=== PATIENT | female | born 1980 | race Caucasian/White ===

== ENCOUNTER 2016-12-25 14:32 | Inpatient (IN) | payer BC ==
--- NOTE | 2016-12-25 14:35 | Non Stress Test Report ---
Non Stress Test Datetime Report Generated by CPN: 12/25/2016 14:35 INDICATION Indication for Study (NST) Other: AMA MONITORING Monitor Explained: Monitor Explained; Test Explained; Patient Verbalized Understanding Time on Monitor: 12/21/2016 14:21 Time off Monitor: 12/21/2016 14:42 NST Duration: 21 NST INTERVENTIONS NST Interventions: PO Hydration; Reposition Patient Physician Notified NST: Dr Chirag BABY A: [id number] BABY A Movement : Present Contraction Frequency : 0 FHR Baseline : 145 Accelerations : 15X15 Decelerations : None Variability : Moderate 6-25bpm NST Review: Meets Criteria for Reactive NST NST Review and Verified By : Kaci Camp RNC NST Results: Reactive NST REPORT Report Trigger: Send Report
[2016-12-25 15:17] LABS: ABSOLUTE LYMPHOCYTES (AUTO) 1.4 10^3/uL (0.5-4.7); ABSOLUTE MONOCYTES (AUTO) 1.2 10^3/uL (0.1-1.4); ABSOLUTE NEUT (AUTO) 7.3 10^3/uL (1.7-8.2); BASOPHILS % (AUTO) 0.2 % (0-2); EOSINOPHILS % (AUTO) 0.2 % (0-6); HEMATOCRIT 31.9 % (36.0-47.0); HEMOGLOBIN 11.2 g/dL (12.0-15.5); HGB HCT DIFFERENCE 1.7; LYMPHOCYTES % (AUTO) 14.1 % (13-45); MEAN CORPUSCULAR HEMOGLOBIN 32.7 pg (27.0-33.4); MEAN CORPUSCULAR HGB CONC 35.3 g/dL (32.0-36.0); MEAN CORPUSCULAR VOLUME 93 fl (80-97); MONOCYTES % (AUTO) 12.3 % (3-13); RED BLOOD COUNT 3.44 10^6/uL (3.72-5.28); RED CELL DISTRIBUTION WIDTH 12.6 % (11.5-14.0); SEGMENTED NEUTROPHILS % (AUTO) 73.2 % (42-78); WHITE BLOOD COUNT 9.9 10^3/uL (4.0-10.5)
[2016-12-25 15:25] LABS: APPEARANCE,URINE SLIGHTLY-CLOUDY; BILIRUBIN,URINE NEGATIVE (NEGATIVE); GLUCOSE, URINE NEGATIVE (NEGATIVE); KETONES,URINE NEGATIVE (NEGATIVE); LEUKOCYTE ESTERASE,URINE SMALL (NEGATIVE); NITRITE,URINE NEGATIVE (NEGATIVE); PROTEIN,URINE NEGATIVE (NEGATIVE); URINE SPECIFIC GRAVITY 1.005; UROBILINOGEN,URINE NEGATIVE mg/dL (<2.0)
[2016-12-25 15:38] LABS: ALANINE AMINOTRANSFERASE 20 U/L (9-52); ALBUMIN 3.1 g/dL (3.5-5.0); ALKALINE PHOSPHATASE 84 U/L (38-126); ANION GAP 11 (5-19); ASPARTATE AMINO TRANSFERASE 17 U/L (14-36); BILIRUBIN,DIRECT 0.2 mg/dL (0.0-0.4); BILIRUBIN,TOTAL 0.3 mg/dL (0.2-1.3); BLOOD UREA NITROGEN 5 mg/dL (7-20); CALCIUM 9.8 mg/dL (8.4-10.2); CARBON DIOXIDE 21 mmol/L (22-30); CHLORIDE 108 mmol/L (98-107); CREATININE RESULT 0.73 mg/dL (0.52-1.25); GLUCOSE 107 mg/dL (75-110); LDH 336 U/L (313-618); POTASSIUM 3.4 mmol/L (3.6-5.0); SODIUM 140.2 mmol/L (137-145); TOTAL PROTEIN 5.9 g/dL (6.3-8.2); URIC ACID 4.4 mg/dL (2.5-7.0)
[2016-12-25 15:46] LABS: URINE BARBITURATES SCREEN NEGATIVE; URINE METHADONE SCREEN NEGATIVE; URINE OPIATES LOW NEGATIVE; URINE PHENCYCLIDINE SCREEN NEGATIVE
[2016-12-25 15:55] LABS: URINE CREATININE 39.4 mg/dL (16-327); URINE PROTEIN 14.6 mg/dL (<12)
[2016-12-25] MEDS ORDERED: OXYTOCIN/NORMAL SALINE 20 UNIT/1,000 ML RTUINJ ONE (17:07)
[2016-12-25] MEDS ORDERED: OXYTOCIN 10 UNIT/ML VIAL ONE (17:08)
[2016-12-25] MEDS ORDERED: MORPHINE SULFATE 10 MG/ML INJ ONE (17:08)
[2016-12-25] MEDS ORDERED: MIDAZOLAM 2 MG/2 ML INJ ONE (17:08)
[2016-12-25] MEDS ORDERED: DIPH/PERTUSS(ACELL)/TETANUS VAC/PF 0.5 ML SYR (>=10YO) IM PRN (18:05)
[2016-12-25] MEDS ORDERED: OXYTOCIN/NORMAL SALINE 20 UNIT/1,000 ML RTUINJ IV PRN (18:05)
[2016-12-25] MEDS ORDERED: MEASLES,MUMPS&RUBELLA VACC/PF 0.5 ML VIAL SUBCUT PRN (18:05)
[2016-12-25] MEDS ORDERED: OXYCODONE-ACETAMINOPHEN 5-325 MG TABLET PO PRN (18:05)
[2016-12-25] MEDS ORDERED: ACETAMINOPHEN 325 MG TABLET PO PRN (18:05)
[2016-12-25] MEDS ORDERED: PROMETHAZINE HCL INJ 25 MG/1 ML VIAL IV PRN (18:05)
[2016-12-25] MEDS ORDERED: ACETAMINOPHEN 100 ML IV ONE (18:14)
[2016-12-25] MEDS ORDERED: ACETAMINOPHEN 100 ML IV PRN (19:00)
[2016-12-25] MEDS ORDERED: FENTANYL CITRATE INJ/PF 100 MCG/2 ML AMPUL ONE (19:32)
[2016-12-25] MEDS ORDERED: KETOROLAC TROMETHAMINE INJ/PF 30 MG/1 ML SDV IV ONE (20:00)
[2016-12-25] MEDS ORDERED: KETOROLAC TROMETHAMINE INJ/PF 30 MG/1 ML SDV ONE (20:06)
--- NOTE | 2016-12-25 20:22 | Admission Physical ---
Datetime Report Generated by CPN: 12/25/2016 20:22 CURRENT ADMISSION Chief Complaint: Signs/Symptoms Gestational HTN; Other Chief Complaint Other: History of section Indication for Induction: Not Applicable Indication for Induction: Term, Intrauterine ; No Active Labor; Intact Membranes Admit Impression- Other: Severe Range BPs in office and YIN since Saturday. Elevated P:C ratio Admit Plan: Admit to Unit; Initiate Section Protocol ALLERGIES Medication Allergies: No Medication Allergies: No Known Allergies (12/21/2016) Latex: No Latex Allergies OBSTETRICAL HISTORY EDC: 01/15/2017 00:00 : 3 Para: 1 Cesareans: 1 Gestational Diabetes: No Rh Sensitization: No Incompetent Cervix: No IMELDA: No Infertility: No ART Treatment: No Uterine Anomaly: No IUGR: No Hx Previous C/S: No Macrosomia: No Hx Loss/Stillborn: No PIH: No Hx : No Placenta Previa/Abruption: No Depression/PP Depression: No PTL/PROM: No Post Hemorrhage: No Obstetrical History Comments: G1 2010 baby boy G2 SAB G3 current SEE RECORDS Alcohol: No Marijuana : No Cocaine: No Other Illicit Drugs: No Cigarettes: Never Smoker. [id number] MEDICAL HISTORY Diabetes: No Blood Transfusion: No Pulmonary Disease (Asthma, TB): No Breast Disease: No Hypertension: No Relay Dispatcher Surgery: No Heart Disease: No Hosp/Surgery: No Autoimmune Disorder: No Anesthetic Complications: No Kidney Disease: No Abnormal Pap Smear: No Neuro/Epilepsy: No Psychiatric Disorders: No Other Medical Diseases: No Hepatitis/Liver Disease: No Significant Family History: No Varicosities/Phlebitis: No Trauma/Violence : No Thyroid Dysfunction: No INFECTIOUS HISTORY Gonorrhea: No Genital Herpes: No Chlamydia: No Tuberculosis: No Syphilis: No Hepatitis: No HIV/AIDS Exposure: No Rash or Viral Illness: No HPV: No PHYSICAL EXAM General: Normal HEENT: Normal Neurologic: Normal Thyroid: Normal Heart: Normal Lungs: Normal Breast: Deferred Back: Normal Abdomen: Normal Genitourinary Exam: Normal Extremities: Normal DTRs: Normal Pelvic Type: Adequate Vital Signs: Reviewed VAGINAL EXAM Dilatation: 2 Effacement: 80 Station: -1 Contraction Comments: Irregular MEMBRANES Membranes: Intact FETUS A EGA: 37.0 Monitoring: External US FHR- Baseline: 155 Variability: Moderate 6-25bpm Accelerations: 15X15 Decelerations: None FHR Category: Category I Presentation: Vertex Admit Comment: 36yo at 37+0ega presents from office with YIN since Zack (improved today) but severe range BPs in office. BP 162/74 and 161/74. BPs on L_D normal but Protein:Creatinine ratio elevated at 0.4 which is c/w PreE. Reviewed PreE and risks of PreE in and recommendations for delivery. c/b AMA, IVF , GBS pos. MFM consult during due to IVF . Platlets normal and AST/ALT wnl. Consents reviewed and due to h/o prior section plan for Repeat Section. PLANS FOR LABOR AND DELIVERY Feeding Preference: Breast Benefit of Breast Feed Discussed: Yes Circumcision: Yes INFORMED CONSENT Informed Consent Obtained: Section Delivery; Risks, Benefits and Alternatives Discussed Signature: with User ID: [email or web address]
--- NOTE | 2016-12-25 20:27 | OPERATIVE REPORT E ---
Operative Report NAME: ANJALI MENARD : 1980 AGE: 36Y DATE OF SURGERY: 12/25/2016 ROOM: LR200 PREOPERATIVE DIAGNOSIS: INTRAUTERINE AT 37 WEEKS AND ZERO DAYS, PREECLAMPSIA, AND PREVIOUS . POSTOPERATIVE DIAGNOSIS: INTRAUTERINE AT 37 WEEKS AND ZERO DAYS, PREECLAMPSIA, AND PREVIOUS . OPERATION: Low-transverse hysterotomy, section procedure. SURGEON: MANOLO CLARKE M.D. ANESTHESIA: Della Sanchez MD, with a spinal. FINDINGS: Male infant, cephalic presentation, with Apgars of 9/9, weight of 3055 grams. COMPLICATIONS: None. ESTIMATED BLOOD LOSS: 600 mL TISSUE REMOVED OR ALTERED: None. PROCEDURE IN DETAIL: The patient was taken to the operating room, prepared and draped in normal sterile fashion in the supine position with a leftward tilt. The transverse skin incision was made with a scalpel and carried through to the underlying layer of fascia with the same scalpel. The fascia was excised in the midline, extended laterally with surgeon finger fracture. The fracture was then dissected from the rectus muscle sharply using Barba's, and the rectus muscle was entered sharply using the Bovie, and careful layering of the dissection due to rectus muscle adhesions. The rectus muscle was then divided, and the peritoneal cavity was entered bluntly with good visualization of the bladder and the uterus. The bladder flap was created using Metzenbaum's and dissected down, well away from the hysterotomy site, as the bladder did have previous adhesions of the bladder mcc up the lower uterine segment. The hysterotomy was then nicked with a scalpel and extended laterally with surgeon finger fracture. The was delivered atraumatically. The nose and mouth were suctioned with a suction bulb, and the cord was clamped and cut, and the infant was handed off to waiting bee producer. The cord blood was collected, and the placenta was removed manually. The uterus was exteriorized and cleared of clots and debris. The hysterotomy was closed with 0 Monocryl in a running, locked fashion. A second layer of stay suture was used to imbricate to ensure hemostasis. The uterus was then returned to the abdomen. The peritoneal cavity was once again cleared of clots. The rectus muscle and peritoneum were reapproximated with a mattress stitch of 2-0 chromic. The fascia was closed with 0 Vicryl. Subcutaneous layer was closed with plain catgut, and the skin was closed with 4-0 Vicryl. The patient tolerated the procedure well. Sponge, lap, and needle counts were correct x2. The patient was taken to recovery in stable condition. DICTATING PHYSICIAN: MANOLO CLARKE M.D. [id number] PHY#: [id number] ID: [id number] JOB#: [id number] ACCT: [id number] cc:MANOLO CLARKE M.D. >
[2016-12-25] MEDS: MORPHINE SULFATE 10 MG/ML INJ IV PRN (20:48)
--- NOTE | 2016-12-25 20:51 | Delivery Summary ---
Del Sum A-C Datetime Report Generated by CPN: 12/25/2016 20:51 DELIVERY PERSONNEL DELIVERY PERSONNEL: [id number] Delivery Doctor:: Chhaya Beard MD Anesthesiologist:: Della Sanchez MD MANAGER DIABETES:: Cyril Snider CRNA Labor and Delivery Nurse:: Nikia Mesa RN Labor and Delivery Nurse:: TEODORA Jacobo Nursery Nurse:: Janett Montano RN Community Health Counselor/ELECTRICIAN CONTROL EQUIPMENT: Blanca Tamez, ST Community Health Counselor/ELECTRICIAN CONTROL EQUIPMENT: Nikole Cheung, DIGITAL ASSET COORDINATOR MATERNAL INFORMATION Delivery Anesthesia: Spinal Medications After Delivery: Pitocin Drip 20 Units/1000ml NSS Estimated Blood Loss (ml): 500 Maternal Complications: Other Other Maternal Complications: Pre e LABOR SUMMARY EDC: 01/15/2017 00:00 Attempted: No LABOR INFORMATION Reason for Induction: Not Applicable Group B Beta Strep: Positive Antibiotics # of Doses: 0 Steroids Given: None Reason Steroids Not Administered: Not Applicable MEMBRANES Membranes Rupture Method: Artificial Rupture of Membranes: 12/25/2016 17:01 Length of Rupture (hr): 0.52 Amniotic Fluid Color: Clear Amniotic Fluid Amount: Small Amniotic Fluid Odor: Normal STAGES OF LABOR Stage 3 hr: 0 Stage 3 min: 1 VAGINAL DELIVERY Episiotomy: None Laceration #1: None Laceration Extension #1: N/A Laceration Repair: No CSECTION DELIVERY Primary Indication: Other Other Primary Indication: Pre e Secondary Indication: Severe PIH, Unfavorable Cervix CSection Urgency: Non-Scheduled CSection Incidence: Repeat Labor: N/A Elective: Elective CSection Incision: Lower Uterine Transverse BABY A INFORMATION Infant Delivery Date/Time: 12/25/2016 17:32 Method of Delivery: Born in Route : No : N/A Forceps: N/A Vacuum Extraction: N/A Shoulder Dystocia : No PLACENTA INFORMATION BABY A Placenta Delivery Time : 12/25/2016 17:33 Placenta Method of Delivery: Expressed Placenta Status: Delivered SCORES BABY A Heart Rate 1 min: >100 bpm Resp Effort 1 min: Good Cry Reflex Irritability 1 min: Cough or Sneeze or Pulls Away Muscle Tone 1 min: Active Motion Color 1 min: Body [place], Extremities Blue Resuscitation Effort 1 min: N/A SCORE 1 MIN: 9 Heart Rate 5 min: >100 bpm Resp Effort 5 min: Good Cry Reflex Irritability 5 min: Cough or Sneeze or Pulls Away Muscle Tone 5 min: Active Motion Color 5 min: Body [place], Extremities Blue Resuscitation Effort 5 min: N/A SCORE 5 MIN: 9 INFORMATION BABY A Gestational Age at Delivery: 37.0 Gestational Status: Early Term- 37- 38.6 Weeks Infant Outcome : Liveborn Infant Condition : Stable Sex: Male IDENTIFICATION BABY A Infant Verification Date/Time: 12/25/2016 17:34 ID Band Number: [id number] Mother's Name Verified: Yes RN Verifying : Harrison Mesa RN Additional Verifying Personnel: Vikas Gore RN WEIGHT/LENGTH BABY A Birthweight (gm): 3055 Weight (lb): 6 Infant Weight (oz): 12 Length (in): 19.00 Infant Length (cm): 48.26 CORD INFORMATION BABY A No. Cord Vessels: 3 Nuchal Cord : Around Neck x1, Loose Cord Blood Taken: Yes-For Eval (Mom's Blood Type - or O+) Infant Suction: None ASSESSMENT BABY A Infant Complications: None Physical Findings at Delivery: Within Normal Limits Infant Respirations: Appears Normal Skin to Skin: Yes Skin to Skin Time (min): 20 Napkin Machine Operator/ALS Called : No Infant Care By: Dwayne Montano RN Transferred To: Nursery
[2016-12-25] MEDS: OXYCODONE-ACETAMINOPHEN 5-325 MG TABLET PO PRN (22:48)
[2016-12-26] MEDS ORDERED: KETOROLAC TROMETHAMINE INJ/PF 30 MG/1 ML SDV IV SCH ×2 (02:00→04:00)
[2016-12-26] MEDS: MORPHINE SULFATE 10 MG/ML INJ IV PRN (02:13)
[2016-12-26 06:59] LABS: HEMATOCRIT 28.6 % (36.0-47.0); HGB HCT DIFFERENCE 1.4; MEAN CORPUSCULAR HEMOGLOBIN 32.8 pg (27.0-33.4); MEAN CORPUSCULAR VOLUME 94 fl (80-97); RED BLOOD COUNT 3.05 10^6/uL (3.72-5.28); RED CELL DISTRIBUTION WIDTH 12.7 % (11.5-14.0); WHITE BLOOD COUNT 11.4 10^3/uL (4.0-10.5)
[2016-12-26] MEDS: SIMETHICONE 80 MG TAB.CHEW PO PRN ×4 (08:11→22:25)
[2016-12-26] MEDS: OXYCODONE-ACETAMINOPHEN 5-325 MG TABLET PO PRN ×3 (08:12→16:09)
[2016-12-26] MEDS: PRENATAL VITAMIN W-O CA NO5/FE FUMARATE/FA CAPSULE PO SCH (09:08)
[2016-12-26] MEDS: DOCUSATE SODIUM 100 MG CAPSULE PO SCH ×2 (09:09→17:46)
--- NOTE | 2016-12-26 11:22 | PDOC PROGRESS REPORT ---
Subjective-OB Subjective: Post Delivery Day: 36 year old. Denies any needs at this time Doing well, no c/o, passing gas, ambulating, eating well, baby at BS, Physical Exam (OB) Vital Signs: Temp Pulse Resp BP Pulse Ox 98.2 F 61 16 124/68 98 12/26/16 08:45 12/26/16 08:45 12/26/16 08:45 12/26/16 08:45 12/26/16 08:45 Intake & Output 12/25/16 12/26/16 12/27/16 06:59 06:59 06:59 Output Total 1300 1300 Balance -1300 -1300 Weight 76.3 kg - PIH/Pre-Eclampsia DTR's: 2 + Clonus: Negative Headache: Absent Epigastric Pain: No Visual Changes: No - Dressing Removed: No Incision: Dressing - Lochia Lochia Amount: Scant < 10 ml Lochia Color: Rubra/Red - Abdomen Description: Tender Hernia Present: No Fundal Description: Firm Fundal Height: u/u - u/2 Objective-Diagnostic Laboratory: 12/26/16 06:36 12/25/16 15:04 12/25/16 12/25/16 12/25/16 14:42 15:04 15:04 WBC 9.9 RBC 3.44 L Hgb 11.2 L Hct 31.9 L MCV 93 MCH 32.7 MCHC 35.3 RDW 12.6 Plt Count 220 Seg Neutrophils % 73.2 Lymphocytes % 14.1 Monocytes % 12.3 Eosinophils % 0.2 Basophils % 0.2 Absolute Neutrophils 7.3 Absolute Lymphocytes 1.4 Absolute Monocytes 1.2 Absolute Eosinophils 0.0 Absolute Basophils 0.0 Sodium 140.2 Potassium 3.4 L Chloride 108 H Carbon Dioxide 21 L Anion Gap 11 BUN 5 L Creatinine 0.73 Est GFR ( Amer) > 60 Est GFR (Non-Af Amer) > 60 Glucose 107 Uric Acid 4.4 Calcium 9.8 Total Bilirubin 0.3 AST 17 ALT 20 Alkaline Phosphatase 84 Total Protein 5.9 L Albumin 3.1 L Urine Color YELLOW Urine Appearance SLIGHTLY-CLOUDY Urine pH 7.0 Ur Specific Leon 1.005 Urine Protein NEGATIVE Urine Glucose (UA) NEGATIVE Urine Ketones NEGATIVE Urine Blood NEGATIVE Urine Nitrite NEGATIVE Ur Leukocyte Esterase SMALL H Urine WBC (Auto) 38 Urine RBC (Auto) 11 Blood Type Antibody Screen 12/25/16 12/26/16 15:04 06:36 WBC 11.4 H RBC 3.05 L Hgb 10.0 L Hct 28.6 L MCV 94 MCH 32.8 MCHC 35.0 RDW 12.7 Plt Count 177 Seg Neutrophils % Lymphocytes % Monocytes % Eosinophils % Basophils % Absolute Neutrophils Absolute Lymphocytes Absolute Monocytes Absolute Eosinophils Absolute Basophils Sodium Potassium Chloride Carbon Dioxide Anion Gap BUN Creatinine Est GFR ( Amer) Est GFR (Non-Af Amer) Glucose Uric Acid Calcium Total Bilirubin AST ALT Alkaline Phosphatase Total Protein Albumin Urine Color Urine Appearance Urine pH Ur Specific Leon Urine Protein Urine Glucose (UA) Urine Ketones Urine Blood Urine Nitrite Ur Leukocyte Esterase Urine WBC (Auto) Urine RBC (Auto) Blood Type O POSITIVE Antibody Screen NEGATIVE Assessment and Plan(PN) - Assessment and Plan (1) Depression Qualifiers: Depression Type: unspecified Qualified Code(s): F32.9 - Major depressive disorder, single episode, unspecified Is this a current diagnosis for this admission?: Yes (2) Anxiety Is this a current diagnosis for this admission?: Yes (3) Pre-eclampsia affecting childbirth Is this a current diagnosis for this admission?: Yes (4) Delivery by section of full-term infant Is this a current diagnosis for this admission?: Yes - Time Spent with Patient Time with patient: Less than 15 minutes Smoking Education Provided: Over 3 minutes Medications reviewed and adjusted accordingly: Yes - Disposition Anticipated Discharge: Home Within: within 24 hours
[2016-12-26] MEDS: IBUPROFEN 800 MG TABLET PO SCH ×3 (12:15→23:00)
[2016-12-26] MEDS ORDERED: IBUPROFEN 800 MG TABLET PO SCH (15:00)
[2016-12-27] MEDS: OXYCODONE-ACETAMINOPHEN 5-325 MG TABLET PO PRN ×2 (01:21→10:05)
[2016-12-27] MEDS: SIMETHICONE 80 MG TAB.CHEW PO PRN ×3 (05:04→14:54)
[2016-12-27] MEDS: IBUPROFEN 800 MG TABLET PO SCH ×2 (05:04→12:18)
[2016-12-27] MEDS: DOCUSATE SODIUM 100 MG CAPSULE PO SCH (10:03)
[2016-12-27] MEDS: PRENATAL VITAMIN W-O CA NO5/FE FUMARATE/FA CAPSULE PO SCH (10:03)
--- NOTE | 2016-12-27 10:32 | PDOC DISCHARGE SUMMARY ---
Final Diagnosis Discharge Date: 12/27/16 - Final Diagnosis (1) Delivery by section of full-term infant Is this a current diagnosis for this admission?: Yes (2) Pre-eclampsia affecting childbirth Is this a current diagnosis for this admission?: Yes Discharge Data - Discharge Medication Home Medications: Acetaminophen [Tylenol] 325 mg PO PRN PRN 12/21/16 Fluoxetine HCl [Prozac] 20 mg PO DAILY 12/21/16 Pnv,Calcium 72/Iron/Folic Acid [Pnv Plus Multivit Tab] 1 tab PO DAILY 12/21/16 Doxylamine Succinate/Vit B6 [Diclegis Dr 10-10 mg Tablet] 1 cap PO DAILY Phenylephrine HCl/Chlor-Mal [Sudafed PE Sinus & Allergy Tab] 1 cap PO DAILY 09/03 Reason(s) for Admission: Ceasarean Section-Repeat, Obstetric Complications, PIH Procedures: None, Management of Obstetric Complications Intrapartum Procedure(s): : Low Cervical, Transverse - Diagnosis Test Laboratory: Temp Pulse Resp BP Pulse Ox 98.5 F 64 16 124/72 98 12/27/16 07:44 12/27/16 07:44 12/27/16 07:44 12/27/16 07:44 12/27/16 07:44 12/25/16 12/25/16 12/26/16 14:42 15:04 06:36 RBC 3.44 L 3.05 L Hgb 11.2 L 10.0 L Hct 31.9 L 28.6 L Urine Opiates Screen NEGATIVE - Discharge information/Instructions Discharge Activity: Balance Activity w/Rest, No Lifting Over 10 Pounds, No Lifting/Push/Pulling, Pelvic Rest, No tub bath, Walk Frequently Discharge Diet: Regular Disposition: HOME, SELF-CARE Follow [facility]: [facility] in: 5, Days
[2016-12-27 11:53] VITALS: BP 137/79
[2016-12-27] MEDS ORDERED: PROMETHAZINE HCL INJ 25 MG/1 ML VIAL IV PRN (15:30)
[2016-12-27] MEDS ORDERED: MEASLES,MUMPS&RUBELLA VACC/PF 0.5 ML VIAL SUBCUT PRN (15:30)
[2016-12-27] MEDS ORDERED: DIPH/PERTUSS(ACELL)/TETANUS VAC/PF 0.5 ML SYR (>=10YO) IM PRN (15:30)
== END 2016-12-27 15:43 | disposition home or self-care (01) | DRG 766 ==
LOC: LC 14:32 → LR 16:14 → 2N 20:20
PROVIDERS: ADMIT Student in an Organized Health Care Education/Training Program; ATTEND Student in an Organized Health Care Education/Training Program
PROC: 10D00Z1 Extraction of Products of Conception, Low, Open Approach (ICD-10-PCS; principal; 2016-12-25)
PROC: 4A1HXCZ Monitoring of Products of Conception, Cardiac Rate, External Approach (ICD-10-PCS; 2016-12-25)
DX: O14.94 Unspecified pre-eclampsia, complicating childbirth (principal); O99.824 Streptococcus B carrier state complicating childbirth; O99.344 Other mental disorders complicating childbirth; F32.9 Major depressive disorder, single episode, unspecified; F41.9 Anxiety disorder, unspecified; O69.81X0 Labor and delivery complicated by cord around neck, without compression, not applicable or unspecified; Z3A.37 37 weeks gestation of pregnancy; Z37.0 Single live birth
CPT/HCPCS: 1961; 36415; 80053; 80307; 81001; 82570; 83615; 84156; 84550; 85025; 85027; 86592; 86850; 86900; 86901; J0131; J1885; J2250; J2270; J2590; J3010

== ENCOUNTER → 2020-03-12 | Outpatient (CLI) | payer BC ==
[~2020-03-12] MED LIST: COVID-19 VACCINE (PFIZER)/PF 30 MCG/0.3 ML VIAL IM ONE; EPINEPHRINE INJ/PF 1 MG/1 ML AMPULE IM PRN
== END ==
LOC: EMPHEALTH 11:38
PROVIDERS: ATTEND Internal Medicine
DX: Z23 Encounter for immunization (principal)
CPT/HCPCS: 91300